=== PATIENT | male | born 1965 | race Caucasian/White ===

== ENCOUNTER 2019-07-18 03:13 | Inpatient (IN) ==
[2019-07-18] MEDS ORDERED: Nitroglycerin 0.4 MG TAB.SUBL SL PRN (03:26)
[2019-07-18 03:36] LABS: Basophils # 0.1 K/mcL (0.0-0.2); Basophils % 0.5 %; Eosinophils # 0.2 K/mcL (0.0-0.6); Eosinophils % 1.8 %; Hemoglobin 17.9 g/dL (12.9-16.9); Immature Granulocytes % 0.3 % (0-4); Lymphocytes # 4.2 K/mcL (0.6-4.6); Lymphocytes % 35.2 %; Mean Corpuscular HGB Conc 33.8 g/dL (31.6-35.5); Mean Corpuscular Hemoglobin 31.1 pg (28.0-33.3); Mean Corpuscular Volume 92.2 fL (83.0-100.0); Monocytes # 0.9 K/mcL (0.0-1.3); Monocytes % 7.1 %; Neutrophils # 6.5 K/mcL (1.6-8.9); Platelet Count 297 K/mcL (140-400); Red Blood Count 5.75 M/mcL (4.19-5.50); Red Cell Distribution Width 12.3 % (11.5-14.5); Segmented Neutrophils % 55.1 %; White Blood Count 11.9 K/mcL (4.3-11.1)
[2019-07-18] MEDS ORDERED: *HR* Ticagrelor 90 MG TABLET PO ONE (03:41)
[2019-07-18] MEDS ORDERED: *HR* Heparin 5,000 UNIT/ML VIAL IVP ONE (03:42)
[2019-07-18] MEDS ORDERED: *HR* FentaNYL (PF) 100 MCG/2 ML VIAL IVP ONE (03:46)
[2019-07-18] MEDS ORDERED: 0.9 % Sodium Chloride 1,000 ML ONE ×4 (03:47→04:46)
[2019-07-18] MEDS ORDERED: Heparin 1,000 UNITS/500 mL 500 ML ONE (03:48)
[2019-07-18] MEDS ORDERED: *HR* Heparin 10,000 UNIT/10 ML VIAL ONE ×2 (03:48→04:13)
[2019-07-18] MEDS ORDERED: Nitroglycerin 1,000 MCG/10 ML VIAL IV ONE (03:48)
[2019-07-18] MEDS ORDERED: ISOVUE-370 200 ML INFUS..BTL ONE (03:48)
[2019-07-18 03:54] LABS: Prothrombin Time 11.1 Seconds (9.4-12.1)
[2019-07-18] MEDS ORDERED: Verapamil 5 MG/2 ML VIAL ONE (03:55)
[2019-07-18 03:56] LABS: Activated Partial Thrombo Time 27.6 Seconds (26.0-36.0)
[2019-07-18] MEDS ORDERED: *HR* Midazolam HCl 2 MG/2 ML VIAL ONE (03:56)
[2019-07-18 04:00] LABS: BUN/Creatinine Ratio 15 (6-26); Blood Urea Nitrogen 14 mg/dL (6-20); Carbon Dioxide 22 mEq/L (23-29); Chloride 107 mEq/L (98-107); Glucose 151 mg/dL (70-105); Osmolality,Calculated 295 (280-300); Sodium 141 mEq/L (136-145); eGFR For African Americans > 60 (> 60); eGFR For Non-African Americans > 60 (> 60)
[2019-07-18 04:01] LABS: Troponin I < 0.03 ng/mL (< 0.04)
[2019-07-18] MEDS ORDERED: *HR* Atropine Sulfate 1 MG/10 ML SYRINGE ONE (04:14)
[2019-07-18] MEDS ORDERED: *HR* Phenylephrine 10 MG/ML VIAL ONE (04:42)
[2019-07-18] MEDS ORDERED: 0.9 % Sodium Chloride 250 ML ONE (04:43)
[2019-07-18] MEDS ORDERED: *HR* Adenosine 6 MG/2 ML VIAL IVP ONE (04:44)
[2019-07-18] MEDS: Aspirin 81 MG TAB.CHEW PO SCH (08:28)
[2019-07-18] MEDS: *HR* Ticagrelor 90 MG TABLET PO SCH ×2 (08:29→21:04)
[2019-07-18] MEDS ORDERED: *HR* Heparin 5,000 UNIT/ML VIAL IVP PRN ×2 (14:43)
[2019-07-18] MEDS ORDERED: Heparin 25,000 UNIT/250 ML D5W 25,000 UNIT/250 ML IV.SOLN IVC SCH (14:45)
[2019-07-18 15:28] LABS: Prothrombin Time 11.8 Seconds (9.4-12.1)
[2019-07-18 16:42] LABS: Hematocrit 45.1 % (37.5-50.1); Hemoglobin 15.4 g/dL (12.9-16.9); Mean Corpuscular HGB Conc 34.1 g/dL (31.6-35.5); Mean Corpuscular Hemoglobin 31.4 pg (28.0-33.3); Mean Platelet Volume 10.1 fL (9.4-12.4); Platelet Count 261 K/mcL (140-400); Red Cell Distribution Width 12.6 % (11.5-14.5); White Blood Count 14.4 K/mcL (4.3-11.1)
[2019-07-19 04:41] LABS: Basophils % 0.4 %; Eosinophils # 0.1 K/mcL (0.0-0.6); Hematocrit 50.9 % (37.5-50.1); Immature Granulocytes % 0.3 % (0-4); Lymphocytes # 3.3 K/mcL (0.6-4.6); Lymphocytes % 28.9 %; Mean Corpuscular HGB Conc 33.6 g/dL (31.6-35.5); Mean Corpuscular Volume 95.1 fL (83.0-100.0); Mean Platelet Volume 10.1 fL (9.4-12.4); Monocytes # 0.9 K/mcL (0.0-1.3); Platelet Count 262 K/mcL (140-400); Red Blood Count 5.35 M/mcL (4.19-5.50); Red Cell Distribution Width 12.8 % (11.5-14.5); Segmented Neutrophils % 61.4 %; White Blood Count 11.3 K/mcL (4.3-11.1)
[2019-07-19 04:42] LABS: Hemoglobin 17.1 g/dL (12.9-16.9)
[2019-07-19 05:05] LABS: BUN/Creatinine Ratio 13 (6-26); Blood Urea Nitrogen 11 mg/dL (6-20); Calcium 9.7 mg/dL (8.6-10.3); Carbon Dioxide 26 mEq/L (23-29); Chloride 108 mEq/L (98-107); Glucose 110 mg/dL (70-105); Magnesium 1.9 mg/dL (1.6-2.6); Osmolality,Calculated 298 (280-300); Potassium 3.9 mEq/L (3.5-5.1); Sodium 144 mEq/L (136-145); eGFR For African Americans > 60 (> 60); eGFR For Non-African Americans > 60 (> 60)
[2019-07-19 05:15] LABS: Troponin I 24.84 ng/mL (< 0.04)
[2019-07-19] MEDS: *HR* Ticagrelor 90 MG TABLET PO SCH ×2 (07:45→20:45)
[2019-07-19] MEDS: Aspirin 81 MG TAB.CHEW PO SCH (07:45)
[2019-07-19] MEDS ORDERED: *HR* Heparin 10,000 UNIT/10 ML VIAL ONE ×2 (07:54→09:45)
[2019-07-19] MEDS ORDERED: Heparin 1,000 UNITS/500 mL 500 ML ONE ×2 (07:54→09:45)
[2019-07-19] MEDS ORDERED: Nitroglycerin 1,000 MCG/10 ML VIAL IV ONE ×2 (07:54→09:45)
[2019-07-19] MEDS ORDERED: ISOVUE-370 200 ML INFUS..BTL ONE ×2 (07:54→09:45)
[2019-07-19] MEDS ORDERED: 0.9 % Sodium Chloride 2,000 ML ONE ×2 (07:54→09:44)
[2019-07-19] MEDS ORDERED: *HR* Midazolam HCl 2 MG/2 ML VIAL ONE (08:39)
[2019-07-19] MEDS ORDERED: *HR* Bivalirudin 250 MG VIAL IVC ONE (08:39)
[2019-07-19] MEDS ORDERED: niCARdipine 20 MG/200 ML MLS IVC ONE (08:58)
[2019-07-19] MEDS ORDERED: *HR* Adenosine 6 MG/2 ML VIAL IVP ONE (08:58)
[2019-07-19] MEDS: 0.9 % Sodium Chloride 1,000 ML IVC SCH ×2 (10:06→20:49)
[2019-07-19] MEDS: Apixaban 5 MG TABLET PO SCH ×2 (14:36→20:44)
[2019-07-20 01:53] LABS: Hematocrit 48.8 % (37.5-50.1)
[2019-07-20 02:10] LABS: BUN/Creatinine Ratio 21 (6-26); Blood Urea Nitrogen 15 mg/dL (6-20); eGFR For African Americans > 60 (> 60); eGFR For Non-African Americans > 60 (> 60)
[2019-07-20] MEDS: Aspirin 81 MG TAB.CHEW PO SCH (07:59)
[2019-07-20] MEDS: *HR* Ticagrelor 90 MG TABLET PO SCH (07:59)
[2019-07-20] MEDS: Apixaban 5 MG TABLET PO SCH (07:59)
[2019-07-20 13:32] VITALS: BP 149/82
== END 2019-07-20 13:56 | disposition home or self-care (01) | DRG 247 ==
LOC: EMEROOARM 03:13 → ICNU 04:04 → 2NNU 21:51
PROVIDERS: ADMIT Internal Medicine Interventional Cardiology; ATTEND Internal Medicine Interventional Cardiology